=== PATIENT | female | born 1985 | race Caucasian/White ===

== ENCOUNTER 2022-11-25 00:52 | Emergency (ER) | payer MEDICAID ==
[~2022-11-25] VITALS: Ht 167.6 cm; Wt 56.2 kg
[2022-11-25 00:56] VITALS: BP_SYST 102
--- NOTE | 2022-11-25 00:56 | NUR ---
Patient triaged and placed in ER bed 4. Bed placed in lowest position and side rails up. Report given to ARMANDO MEDEL for continuity of care. Instructed patient to notify ED staff for any changes in condition or worsening of symptoms while waiting to be seen by a provider. Patient verbalized understanding.
--- NOTE | 2022-11-25 01:04 | NUR ---
FIRST CONTACT WITH PT. ASSESSMENT COMPLETED. AWAITING EVAL AND ORDERS.
--- NOTE | 2022-11-25 01:16 | NUR ---
MD AT BEDSIDE FOR EXAM AND ORDERS.
--- NOTE | 2022-11-25 01:27 | NUR ---
Patient taken to x-ray.
[2022-11-25] MEDS ORDERED: IBUPROFEN 600 MG TABLET PO ONE (01:30)
[2022-11-25] MEDS ORDERED: BACL10TA PO (01:42)
[2022-11-25] MEDS ORDERED: IBUP-1969 PO (01:42)
--- NOTE | 2022-11-25 01:45 | NUR ---
Patient given written and verbal discharge instructions and verbalizes understanding. ER MD discussed with patient the results and treatment provided. Patient in stable condition. ID arm band removed. Rx of BACLOFEN AND IBUPROFEN given. Patient educated on pain management and to follow up with PMD. Pain Scale 0/10. Opportunity for questions provided and answered. Medication side effect fact sheet provided.
[2022-11-25 01:47] VITALS: BP_SYST 122
== END 2022-11-25 01:47 | disposition home or self-care (01) ==
LOC: SED 00:52
DX: M25.511 Pain in right shoulder (principal); Z79.899 Other long term (current) drug therapy
CPT/HCPCS: 73030; 99283

== ENCOUNTER 2023-08-08 03:53 | Emergency (ER) | payer MEDICAID, OTHER ==
[~2023-08-08] VITALS: Ht 167.6 cm; Wt 58.1 kg
[~2023-08-08 03:53] MED LIST: BACL10TA PO; IBUP-1969 PO
[2023-08-08 04:03] VITALS: BP_SYST 109; PULSE 88; RESP 20; TEMP 97.6; O2SAT 100
== END 2023-08-08 04:56 | disposition left against medical advice (07) ==
LOC: SED 03:53
DX: Z04.1 Encounter for examination and observation following transport accident (principal); R07.9 Chest pain, unspecified; M54.50 Low back pain, unspecified; Z79.899 Other long term (current) drug therapy
CPT/HCPCS: 99283